=== PATIENT | female | born 1935 | race Caucasian/White ===

== ENCOUNTER 2017-10-03 16:12 | Inpatient (IN) | payer OTHER ==
[~2017-10-03] VITALS: Ht 152.4 cm; Wt 62.1 kg
[~2017-10-03 16:12] MED LIST: "\\\"BP MED\\\""; "\\\"BP PILL\\\""; AMLODIPINE5 MG PO; AMOXICILLIN500 MG PO; ARICEPT10 MG PO; ARICEPT5 MG PO; ASPIRIN81 M1 PO; ATIVAN0.5 MG PO; AVPAK PRIMIDONE50 M1 PO; B12-METHYL1000 MCG PO; CIPRO500 MG PO; DAYPRO600 M1 PO; ELAVIL10 MG PO; FEOSOL300 MG PO; FLAGYL500 MG PO; FLEXERIL10 MG PO; GLIPIZIDE5 MG PO; JANUVIA100 MG PO; K-Dur 20MEQ20 MEQ PO; LEVOTHYROXIN0.025 MG PO; LEVOTHYROXINE0.05 MG PO; METFORMIN500 MG PO; MICRO K10 MEQ PO; NAMENDA-5 PO; NAMENDA10 MG PO; NORVASC10 MG PO; OMEPRAZOLE40 MG PO; PERCOCET 325 MG1 TA3 PO; PERCOCET 325 MG1 TA4 PO; PRILOSEC40 MG PO; SERTRALINE50 MG PO; SIMVASTATIN80 MG PO; SINGULAIR10 MG PO; SYNTHROID0.05 MG PO; SYNTHROID0.5 MG PO; VICODIN 5/500 505 MG PO; VICODIN 500 MG-1 TAB PO; VICODIN ES 7501 TAB PO; VITAMIN D2000 IU PO; VITAMIN D32000 IU PO; VOLTAREN75 MG PO; XANAX1 MG PO; XANAX2 MG PO; ZESTRIL10 MG PO; ZOLOFT50 MG PO; [UNRECOGNIZED DRUG - REMARK] PO
[2017-10-03 16:20] VITALS: BP 194/88
[2017-10-03 16:32] LABS: BASO % 0.2 % (0.0-1.0); EOS # 0.1 10*3/uL (0.0-0.4); EOS % 0.8 % (1.0-4.0); HEMATOCRIT 36.9 % (37.0-47.0); HEMOGLOBIN 12.7 g/dl (12.0-16.0); LYMPH % 49.8 % (27.0-41.0); MEAN CORPUSCULAR HGB 29.3 pg (27.0-31.0); MEAN CORPUSCULAR HGB CONC 34.4 g/dl (33.0-37.0); MEAN PLATELET VOLUME 10.6 fl (9.6-12.3); MONO # 0.4 10*3/uL (0.1-1.0); MONO % 5.8 % (3.0-9.0); NEUT # 2.6 10*3/uL (2.3-7.9); NEUT % 43.2 % (47.0-73.0); PLATELET COUNT AUTOMATED 170 10*3/uL (130-400); RED BLOOD COUNT 4.34 10*6/uL (4.10-5.10); RED CELL DISTRI WIDTH 12.8 % (0-14.5)
[2017-10-03 16:33] LABS: BILIRUBIN NEGATIVE (NEGATIVE); BLOOD NEGATIVE (NEGATIVE); CLARITY CLEAR (CLEAR); COLOR YELLOW (YELLOW); GLUCOSE NEGATIVE (NEGATIVE); KETONE 1+ (NEGATIVE); LEUKO ESTERASE NEGATIVE (NEGATIVE); NITRITE NEGATIVE (NEGATIVE); SPECIFIC GRAVITY 1.015 (1.005-1.030); UROBILINOGEN 0.2 E.U./dl (0.2-1.0)
[2017-10-03 16:40] LABS: EPITHELIAL CELLS 0-2; WBC 0-2 wbc/hpf (0-5)
--- NOTE | 2017-10-03 16:47 | NUR ---
PT FAMILY NOW ARRIVES, STATES SHE FELL BACKWARDS STRIKING HEAD ON A CARPETED FLOOR. PT DENIES HEAD PAIN. DR SYED, NEW ORDERS FOR HEAD AND NECK CT.
[2017-10-03 16:48] LABS: ACT PARTIAL THROMBO TIME 23.8 SECONDS (20.8-31.5); INTERNATIONAL NORM RATIO 1.1 (2.0-3.5)
[2017-10-03 16:49] LABS: ALBUMIN 4.1 gm/dl (3.1-4.5); ALKALINE PHOSPHATASE 51 U/L (45-117); BUN 9 mg/dl (7-24); CHLORIDE 98 mmol/L (98-107); CREATININE 0.72 mg/dL (0.55-1.02); POTASSIUM 3.3 mmol/L (3.5-5.1); SGOT/AST 20 IU/L (3-35); SGPT/ALT 25 U/L (12-78); SODIUM 139 mmol/L (136-145); TOTAL PROTEIN 7.7 gm/dL (6.4-8.2)
[2017-10-03 16:55] LABS: TROPONIN I < 0.015 ng/ml (<0.045)
--- NOTE | 2017-10-03 17:09 | NUR ---
PT REMOVED FROM BACK BOARD AT DR'S DIRECTION. PT EXPRESSES MODERATE RELIEF IN LEFT HIP PAIN AT THIS TIME FROM MEDICATION AND BEING REMOVED FROM THE BOARD.
[2017-10-03] MEDS ORDERED: KLONOPIN0.5 MG PO (17:11)
[2017-10-03] MEDS ORDERED: Amitriptyline H10 MG PO (17:12)
[2017-10-03] MEDS ORDERED: POTASSIUM CHLO20 ME3 PO (17:12)
[2017-10-03] MEDS ORDERED: PRAVASTATIN SOD80 MG PO (17:12)
[2017-10-03] MEDS ORDERED: ZOLOFT50 MG PO (17:13)
[2017-10-03] MEDS ORDERED: PRIMIDONE50 MG PO (17:13)
[2017-10-03] MEDS ORDERED: NAMENDA10 MG PO (17:13)
[2017-10-03] MEDS ORDERED: NORVASC10 MG PO (17:14)
[2017-10-03] MEDS ORDERED: FEROSUL325 MG PO (17:14)
[2017-10-03] MEDS ORDERED: ARICEPT10 M1 PO (17:14)
[2017-10-03] MEDS ORDERED: PRILOSEC10 M2 PO (17:15)
[2017-10-03] MEDS ORDERED: Synthroid,Levo50 MCG PO (17:15)
[2017-10-03] MEDS ORDERED: CARAFATE1 GM PO (17:15)
[2017-10-03] MEDS ORDERED: VITAMIN D5000 UNI1 PO (17:16)
[2017-10-03] MEDS ORDERED: PERCOCET 7.5-31 EACH PO (17:16)
[2017-10-03] MEDS ORDERED: GLUCOPHAGE1000 MG PO (17:16)
[2017-10-03 18:10] VITALS: BP 182/90
[2017-10-03 18:23] VITALS: BP 176/84
--- NOTE | 2017-10-03 18:50 | NUR ---
MSADMTime: N A 82 year old FEMALE admitted to 4E under services of AURELIO SMILEY DO. Pt. arrived via bed from ER. Chief complaint: LEFT HIP FRACTURE. JENAE AVINA
[2017-10-03 20:00] VITALS: BP 185/72
--- NOTE | 2017-10-03 20:00 | NUR ---
PATIENT'S DAUGHTER STATES THAT SHE ALREADY WENT OVER PATIENT'S MEDICATIONS WITH THE RN IN THE ER. STATES SHE HAD TO CALL HER BROTHER AT HOME WITH WHO THE PATIENT LIVES WITH AND HE GAVE HER THE LIST OVER THE PHONE.
--- NOTE | 2017-10-03 20:26 | NUR ---
ONE TIME RESTORIL GIVEN PER PATIENT FAMILY REQUEST.
--- NOTE | 2017-10-03 22:02 | NUR ---
PATIENT MEDICATED WITH PRPravin REDDAUDID FOR STATEMENT "I AM HURTING SO BAD". PATIENT REORIENTED TO TIME AND PLACE. STATES SHE HAS TO PEE AND REMINDED THAT SHE HAS A CATHETER IN PLACE. PATIENT ATTEMPTED TO REMOVE BLANKETS TO GET OUT OF BED AND REMINDED THAT SHE BROKE HER HIP AND HAS TO STAY IN BED. PATIENT MADE COMFORTABLE AT THIS TIME. BED ALARM ON, BED IN LOWEST POSITION, CALL LIGHT IN REACH
[2017-10-04] VITALS (13 sets, daily range): BP systolic 69–169; BP diastolic 28–82
--- NOTE | 2017-10-04 | NUR ---
PATIENT'S DAUGHTER TRISHA HERE STATING SHE IS THE MPOA. AFTER LOOKING IN CHART MAX, ADVANCED DIRECTIVES WERE FOUND DATED IN 2003 WITH TRISHA NAMED THE POA. THIS HAS BEEN PLACED IN THE CHART. DAUGHTER STATES THAT THERE IS A FAMILY MEMBER THAT IS A DOLL WIG MAKER THAT HAS MADE CHANGES IN THE PAST WITHOUT HER KNOWING, AND SHE IS NOT SURE IF CHANGES HAVE BEEN MADE SINCE THESE PAPERS WERE MADE. JUKEBOX OPERATOR IS AWARE OF WHAT IS GOING ON. JUKEBOX OPERATOR SALVADOR IN TO TALK TO PATIENT'S DAUGHTER.
--- NOTE | 2017-10-04 01:18 | NUR ---
PATIENT MEDICATED WITH PRN DILAUDID FOR PAIN. WILL MONITOR
--- NOTE | 2017-10-04 01:18 | NUR ---
DAUGHTER AT BEDSIDE
--- NOTE | 2017-10-04 03:15 | NUR ---
PATIENT RESTING IN BED WITH EYES CLOSED. RESPS EASY AND REGULAR. BED ALARM ON, BED IN LOWEST POSITION, CALL LIGHT IN REACH
--- NOTE | 2017-10-04 03:18 | NUR ---
24 HR chart check completed.
--- NOTE | 2017-10-04 04:21 | NUR ---
PATIENT MEDICATED WITH PRN DILAUDID FOR PAIN. PATIENT IS VERY ANXIOUS. DR OBRIEN AWARE AND STATES HE WILL PUT SOMETHING IN. DAUGHTER AT BEDSIDE.
--- NOTE | 2017-10-04 05:11 | NUR ---
PATIENT STATES REPEATEDLY THAT SHE HAS TO PEE. BLADDER SCANNED FOR 0ML. VELAZQUEZ CATHETER PATENT FOR CLEAR YELLOW URINE.
[2017-10-04 05:42] LABS: BUN 8 mg/dl (7-24); CHLORIDE 99 mmol/L (98-107); PHOSPHOROUS 3.3 mg/dL (2.5-4.9); POTASSIUM 2.9 mmol/L (3.5-5.1); SODIUM 139 mmol/L (136-145)
[2017-10-04 05:53] LABS: BASO % 0.2 % (0.0-1.0); HEMOGLOBIN 12.1 g/dl (12.0-16.0); LYMPH # 1.9 10*3/uL (1.3-4.4); LYMPH % 29.2 % (27.0-41.0); MEAN CELL VOLUME 86.2 fl (81.0-99.0); MEAN CORPUSCULAR HGB 29.8 pg (27.0-31.0); MEAN CORPUSCULAR HGB CONC 34.6 g/dl (33.0-37.0); MEAN PLATELET VOLUME 11.2 fl (9.6-12.3); MONO # 0.6 10*3/uL (0.1-1.0); NEUT # 3.9 10*3/uL (2.3-7.9); NEUT % 61.3 % (47.0-73.0); PLATELET COUNT AUTOMATED 152 10*3/uL (130-400); RED BLOOD COUNT 4.06 10*6/uL (4.10-5.10); RED CELL DISTRI WIDTH 12.9 % (0-14.5); WHITE BLOOD COUNT 6.4 10*3/uL (4.8-10.8)
--- NOTE | 2017-10-04 08:00 | NUR ---
Sole Cutter in to talk to patient. Patient states lives at home with her son. There are 0 steps in the home that the patient uses. Physician: Dr. Susie Tripp Pharmacy: [facility] Home health services: none at present, has used a company from [place] before Patient's level of ADLs: MODERATE ASSIST Patient has working utilities: yes DME: walker Follow-up physician's appointment after d/c: will be made by hospitalist nurse director upon discharge Does patient want to access PORTAL?: no Discharge plan discussed with daughter, CECILY Villanueva. She lives at home with her son. There are steps in the house but the patient doesn't use them. She has had frequent falls and her gait is unsteady. She ambulates with a walker. Discussed SNF with the daughter and she adamantly refuses. Discussed when patient is discharged she will need to go to a short term SNF and daughter agreed and stated she would like her mom to go to [facility]. PAT GARCIA
--- NOTE | 2017-10-04 08:00 | NUR ---
PT C/O PAIN THEN IMMEDIATELY FELL BACK TO SLEEP, DAUGHTER STATES THAT SHE HAS NOT SLEPT ALL NIGHT, RESTING QUIETLY SUKHI VASQUEZ [facility]
--- NOTE | 2017-10-04 08:41 | NUR ---
MEDICATED FOR C/O LEFT HIP PAIN PT RATES A 10, FAMILY AT THE BEDSIDE, X-RAY COMPLETED PER ORDER SU[facility]I [facility]
--- NOTE | 2017-10-04 09:15 | NUR ---
ASSESSED PT FOR PAIN. WAS SLEEPING IN BED. FAMILY AT BEDSIDE. SUKHI VASQUEZ [facility]
--- NOTE | 2017-10-04 09:22 | NUR ---
PATIENTS DAUGHTER,JUANJO, CALLED IN FOR UPDATE ON PATIENT BUT I INFORMED HER THAT THE POA HAD CHANGED THE PASSWORD AND NO INFORMATION COULD BE GIVEN OUT WITHOUT IT. JUANJO THEN STATED SHE WAS THE REAL POA AND WOULD BRING IN UPDATED PAPERWORK. PER ROLA TERESA THE CURRENT POA STANDS UNTIL AN UPDATED ONE IS PRODUCED WITH SIGNATURE OF PATIENT. BRENDEN AMBROSE AWARE OF SITUATION WELL.
--- NOTE | 2017-10-04 09:56 | NUR ---
DR. HOGUE'S OFFICE NOTIFIED THAT DR. ROSADO HAS CLEARED THE PATIENT FOR SURGERY MEDICALLY.
--- NOTE | 2017-10-04 10:00 | NUR ---
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 NOTIFIED OF LOW POTASSIUM, FAMILY AT BEDSIDE. [facility]
--- NOTE | 2017-10-04 11:01 | NUR ---
Patients daughter requested referral for [facility] when patient is ready for short term rehab. Unfortuneately patient has [employer] advantage insurance and the only facility in network is the [facility] in [place]. Contacted Ana and faxed referral.
--- NOTE | 2017-10-04 12:18 | NUR ---
ADMINISTERED DILAUTED IV, HUNG NEW POTASSIUM BAG. PT RESTING IN BED WITH FAMILY VISITING AT BEDSIDE. SUKHI SALDANA
--- NOTE | 2017-10-04 12:46 | NUR ---
ASSESSED PT FOR PAIN. STATED THAT SHE WAS FEELING A LITTLE BETTER. FAMILY VISITING AT BEDSIDE. SU[facility]I VASQUEZ [facility]
--- NOTE | 2017-10-04 13:27 | NUR ---
Patient's chart reviewed, Dr. Vázquez notes indicate pt has a fractured hip and is awaiting surgery. PT Eval on hold until after surgery.
--- NOTE | 2017-10-04 13:43 | NUR ---
PT AWAKE AND RESTING IN BED WAITING TO GO TO SURGERY. FAMILY AT BEDSIDE. POTASSIUM STILL INFUSING. [facility]
--- NOTE | 2017-10-04 14:28 | NUR ---
PTS FAMILY CONCERNED THAT SHE HAD A SEIZURE. THEY STATED SHE HAD A BLANK STARE AND WAS SHAKING FOR "A COUPLE SECONDS." NOTHING WITNESSED BY STAFF. DR. HOOVER INFORMED AND SAID "OKAY." PT RETURNED TO BASELINE AT PRESENT TIME.
[2017-10-04 14:32] LABS: BUN 7 mg/dl (7-24); CHLORIDE 100 mmol/L (98-107); CREATININE 0.57 mg/dL (0.55-1.02); POTASSIUM 3.7 mmol/L (3.5-5.1); SODIUM 137 mmol/L (136-145)
--- NOTE | 2017-10-04 15:15 | NUR ---
PATIENT RECEIVED TO ICCU 5 STATUS POST CARDIAC ARREST IN 419. #[address] AT 22 LIP. CMV 12. TV 600. PEEP 5. O2 100%. POX 100%. VELAZQUEZ PATENT AND DRAINING CLEAR STRAW W/BLOOD TINGE NOTED. 2 IV SITES OBTAINED IN RIGHT ARM. OGT PLACED. BLOOD PRESSURE 133/80. LBBB PER CM-RATE 84.
[2017-10-04 15:23] LABS: BASO % 0.1 % (0.0-1.0); EOS % 0.1 % (1.0-4.0); HEMATOCRIT 35.7 % (37.0-47.0); HEMOGLOBIN 12.1 g/dl (12.0-16.0); LYMPH % 50.9 % (27.0-41.0); MEAN CELL VOLUME 86.9 fl (81.0-99.0); MEAN CORPUSCULAR HGB 29.4 pg (27.0-31.0); MEAN CORPUSCULAR HGB CONC 33.9 g/dl (33.0-37.0); MEAN PLATELET VOLUME 10.9 fl (9.6-12.3); MONO # 0.3 10*3/uL (0.1-1.0); MONO % 3.4 % (3.0-9.0); NEUT # 3.5 10*3/uL (2.3-7.9); NEUT % 44.7 % (47.0-73.0); PLATELET COUNT AUTOMATED 141 10*3/uL (130-400); RED BLOOD COUNT 4.11 10*6/uL (4.10-5.10); RED CELL DISTRI WIDTH 12.9 % (0-14.5); WHITE BLOOD COUNT 7.8 10*3/uL (4.8-10.8)
[2017-10-04 15:37] LABS: ABG BASE EXCESS -0.9 mmol/L (-2.0-2.0); ABG HCO3 21.9 mmol/l (22-26); ABG O2 SATURATION 99.8 % (95-97); ARTERIAL BLOOD GAS PH 7.451 (7.35-7.45)
[2017-10-04 15:42] LABS: PHOSPHOROUS 3.8 mg/dL (2.5-4.9)
--- NOTE | 2017-10-04 15:46 | NUR ---
Nursing screen received and screen completed. Patient was waiting for surgery when a rapid response was called. Patient now in ICCU. Suggest Occupational Therapy referral after hip surgery. Thank you for this consideration. Veronica Hickey OTR/l
--- NOTE | 2017-10-04 15:54 | NUR ---
ENTERED PATIENTS ROOM AT 1451 AFTER TRISHA FROM TRANSPORT CAME TO ME AND SAID SHERMAN FREED RN NEEDED ME IN THE ROOM. PATIENT FOUND TO BE AGONALLY BREATHING. RAPID RESPONSE WAS CALLED AND CRASH CART MOVED INTO THE ROOM. PATIENT FAMILY ASKED TO STEP OUT AND ACLS PROTOCOL WAS STARTED. OCCURANCE CALLED AT 1505 WITH PATIENT INTUBATED AND TRANSPORTED TO ICCU.
--- NOTE | 2017-10-04 17:01 | NUR ---
PATIENT WENT INTO V-FIB PER CM. CPR STARTED. CODE BLUE CALLED. SEE CODE BLUE SHEET.
[2017-10-04 18:20] LABS: ABG HCO3 20.2 mmol/l (22-26); ABG O2 SATURATION 99.7 % (95-97); ARTERIAL BLOOD GAS PCO2 35.7 mmHg (35-45); ARTERIAL BLOOD GAS PH 7.37 (7.35-7.45)
--- NOTE | 2017-10-04 20:00 | NUR ---
BED ASSIGNMENT RECEIVED. PATIENT WILL GO INTO ROOM 4425 AT [facility]. FAMILY AT BEDSIDE. VITALS ARE STABLE. WILL CONTINUE TO MONITOR.
--- NOTE | 2017-10-04 20:55 | NUR ---
PATIENT TRANSPORTED AT THIS TIME TO [facility] BY [facility].
--- NOTE | 2017-10-04 21:04 | NUR ---
REPORT CALLED TO ZARI AT [facility]
== END 2017-10-04 21:04 | disposition short-term general hospital (02) | DRG 535 ==
LOC: ED 16:12 → EDHOLD 18:10 → 4E 18:10 → ICCU 10-04 15:23
PROVIDERS: Internal Medicine; Student in an Organized Health Care Education/Training Program; ADMIT Internal Medicine
PROC: 5A1935Z Respiratory Ventilation, Less than 24 Consecutive Hours (ICD-10-PCS; principal; 2017-10-04)
PROC: 5A12012 Performance of Cardiac Output, Single, Manual (ICD-10-PCS; principal; 2017-10-04)
PROC: 3E00XGC Introduction of Other Therapeutic Substance into Skin and Mucous Membranes, External Approach (ICD-10-PCS; principal; 2017-10-04)
PROC: 0BH17EZ Insertion of Endotracheal Airway into Trachea, Via Natural or Artificial Opening (ICD-10-PCS; principal; 2017-10-04)
DX: S72.145A Nondisplaced intertrochanteric fracture of left femur, initial encounter for closed fracture (principal); I49.01 Ventricular fibrillation; E11.65 Type 2 diabetes mellitus with hyperglycemia; J44.9 Chronic obstructive pulmonary disease, unspecified; I48.91 Unspecified atrial fibrillation; E83.42 Hypomagnesemia; E87.6 Hypokalemia; I16.0 Hypertensive urgency; R06.82 Tachypnea, not elsewhere classified; W18.39XA Other fall on same level, initial encounter; F03.90 Unspecified dementia, unspecified severity, without behavioral disturbance, psychotic disturbance, mood disturbance, and anxiety; F32.9 Major depressive disorder, single episode, unspecified; F41.9 Anxiety disorder, unspecified; K21.9 Gastro-esophageal reflux disease without esophagitis; I25.10 Atherosclerotic heart disease of native coronary artery without angina pectoris; R29.6 Repeated falls; Z88.6 Allergy status to analgesic agent; Z79.899 Other long term (current) drug therapy; Z79.84 Long term (current) use of oral hypoglycemic drugs; Z98.891 History of uterine scar from previous surgery; Z90.49 Acquired absence of other specified parts of digestive tract; Z90.710 Acquired absence of both cervix and uterus; Z80.9 Family history of malignant neoplasm, unspecified; I25.2 Old myocardial infarction; Y93.89 Activity, other specified; Y92.098 Other place in other non-institutional residence as the place of occurrence of the external cause; Y99.8 Other external cause status; Z87.11 Personal history of peptic ulcer disease